=== PATIENT | female | born 1990 | race Caucasian/White ===

== ENCOUNTER 2020-06-07 18:15 | Outpatient (CLI) | payer MEDICAID, SELFPAY ==
[2020-06-07 18:30] VITALS: BMI 28.9
[2020-06-07 19:17] LABS: ROM Internal Control Test YES-OK TO RESULT pt. (Internal QC); ROM Patient Test Negative (Negative)
--- NOTE | 2020-06-09 14:04 | OB.TRI.NOTE ---
History of Present Illness Date of Service: 06/07/20 Was patient seen by the physician?: No Reason For Visit: R/O LABOR Final YAKOV: 08/23/20 Gestational age: 29 Weeks and 2 Days Allergies amoxicillin Allergy (Mild, Verified 04/14/19 16:01) Rash clindamycin Allergy (Mild, Verified 04/14/19 16:01) Rash polymyxin B Allergy (Mild, Verified 04/14/19 16:01) Rash Laboratory Studies: Laboratory Tests 06/07/20 Range/Units 18:38 Vag Amniotic Fld Detect Negative (Negative) NST - FHR Rate Baby A Baseline: 120 Variability:: Moderate Accelerations:: 15 x 15 Decelerations:: None NST Reactive:: Yes Uterine Activity:: quiet Impression/Plan Reactive NST for threatened PTL
== END 2020-06-07 19:20 | disposition home or self-care (01) ==
LOC: WPOUT 18:23 → OBT 18:24
PROVIDERS: Visit Provider Obstetrics & Gynecology
DX: O60.03 Preterm labor without delivery, third trimester (principal); Z3A.29 29 weeks gestation of pregnancy
CPT/HCPCS: 59025; 59050; 84112; 99218; G0378

== ENCOUNTER 2020-08-09 07:35 | Outpatient (CLI) | payer MEDICAID, SELFPAY ==
--- NOTE | 2020-08-09 07:58 | PCM.PN.BLA ---
Progress Note Pt felt a large movement with baby. TAUS- vertex presentation. Cvx 1/t/h.
[2020-08-09 08:11] VITALS: BP 132/71; PULSE 62; O2SAT 94
[2020-08-09 08:12] VITALS: BP 132/71; PULSE 61; TEMP 37.2; O2SAT 96
[2020-08-09 08:14] VITALS: BMI 30.1
[2020-08-09 12:15] VITALS: BP 112/71; PULSE 162; PULSE 85; PULSE 96; TEMP 36.7; O2SAT 83; O2SAT 99
--- NOTE | 2020-08-22 13:52 | OB.TRI.NOTE ---
- Problem List (1) Irregular contractions Status: Acute History of Present Illness Date of Service: 08/09/20 Was patient seen by the physician?: Yes Reason For Visit: R/O LABOR Date of Service: 08/09/20 History of Present Illness: Patient arrived to unit c/o contractions. Denies any loss of fluid or vaginal bleeding. Reports that baby was breech last week in office. Patient assessed by Dr. Garcia at bedside due to history of breech presentation. Brief bedside US completed and vertex position confirmed. Allergies amoxicillin Allergy (Mild, Verified 08/22/20 03:18) Rash clindamycin Allergy (Mild, Verified 08/22/20 03:18) Rash polymyxin B Allergy (Mild, Verified 08/22/20 03:18) Rash Physical Exam Vitals: Vital Signs Temp Pulse BP Pulse Ox 98.1 F 96 112/71 99 08/09/20 12:15 08/09/20 12:15 08/09/20 12:15 08/09/20 12:15 Neurological: Cranial nerves II-XII grossly intact Presentation: Cephalic Cervix Dilation (cm): 1 Station: -3 Effacement (%): 30 NST - FHR Rate Baby A Baseline: 130 Variability:: Moderate Accelerations:: 15 x 15 Decelerations:: None NST Reactive:: Yes FHR Category:: Category I Uterine Activity:: 3-5 minutes Impression/Plan R/O labor CE unchanged Category 1 tracing NST reactive Discharge home
== END 2020-08-09 10:25 | disposition home or self-care (01) ==
LOC: WPOUT 07:39 → WP 07:40
PROVIDERS: Referring Provider Advanced Practice Midwife; Visit Provider Advanced Practice Midwife
DX: O47.9 False labor, unspecified (principal); Z3A.00 Weeks of gestation of pregnancy not specified
CPT/HCPCS: 59025; 59050; 99218; G0378

== ENCOUNTER → 2020-08-12 10:14 | Outpatient (CLI) | payer MEDICAID, SELFPAY ==
[2020-08-09 08:14] VITALS: BMI 30.1
== END ==
PROVIDERS: Visit Provider Obstetrics & Gynecology
DX: Z11.59 Encounter for screening for other viral diseases (principal)
CPT/HCPCS: 87635; C9803; U0003

== ENCOUNTER 2020-08-22 03:40 | Inpatient (IN) | payer MEDICAID, SELFPAY ==
[2020-08-22] VITALS (33 sets, daily range): BP systolic 106–163; BP diastolic 54–79; PULSE 58–190; TEMP 36.3–37; O2SAT 83–100; BMI 30.1
[2020-08-22 04:13] LABS: Absolute Lymphocyte Count 2.28 X10^3/uL (0.83-4.51); Absolute Neutrophil Count 10.2 X10^3/uL (2.0-7.7); Basophil# 0.03 X10^3/uL; Basophil% 0.2 % (0-1); Eosinophil# 0.05 X10^3/uL; Eosinophils% 0.4 % (0-5); Hematocrit 40.2 % (37-47); Hemoglobin 13.8 g/dL (12.0-15.0); Lymphocyte # 2.28 X10^3/ul (4.0); Lymphocyte % 16.8 % (19-41); Mean Corp Hgb Conc 34.3 g/dL (32-36); Mean Corpuscular Hgb 30.9 pg (27.0-32.0); Mean Corpuscular Volume 89.9 fL (81-99); Mean Platelet Vol. 12.7 fl (6.2-12.0); Monocyte# 0.94 X10^3/uL; Monocyte% 6.9 % (0-10); NRBC Flagged by Analyzer 0 % (0-5); Neutrophil # 10.22 X10^3/uL (2.7-7.7); Neutrophil % 75.3 % (47-70); Platelet Count 187 K/mm3 (150-450); RBC Distribution Width CV 13.2 % (11.6-14.6); RBC Distribution Width SD 43.2 fl (35.1-43.9); Red Blood Count 4.47 M/mm3 (4.2-5.4); White Blood Count 13.6 K/mm3 (4.4-11.0)
--- NOTE | 2020-08-22 05:48 | HP.PCM_ITS ---
History Date of Admission: 08/22/20 Final YAKOV: 08/23/20 Gestational age: 39 Weeks and 6 Days History of this : This is a 30 year-old, 30-year-old 1 para 0 presents at 39-6/7 weeks gestation complaining of contractions. She denied gross vaginal bleeding or leaking of fluid. She had good movement. She was evaluated in triage and found mated. Contractions have gotten more intense since admission. 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 but denies ever having had an outbreak Allergies amoxicillin Allergy (Mild, Verified 08/22/20 03:18) Rash clindamycin Allergy (Mild, Verified 08/22/20 03:18) Rash polymyxin B Allergy (Mild, Verified 08/22/20 03:18) Rash Home Medications: Home Medications Pnv No.95/Ferrous Fum/Folic AC [ Formula Tablet] 1 tab PO DAILY 06/07/20 Smoking Status: Never smoker Alcohol: None Number of Fetus(es): 1 History Past Pregnancies: Past Pregnancies Delivery Date Name GA/ Weeks Outcome Route Wt Sex Labor Length Anesthesia Delivery Location Provider FOB Expected Delivery Method: Spontaneous Vaginal Review of Systems Constitutional: Denies: Chills, Fever Eyes: Denies: Blurred vision Cardiovascular: Denies: Chest Pain Respiratory: Denies: Cough, Shortness of Breath Gastrointestinal: Denies: Vomiting Genitourinary: Denies: Dysuria Skin: Denies: Rash Neurological: Denies: Blurred vision, Change in Speech Physical Exam Vitals: Vital Signs Temp Pulse BP Pulse Ox 97.9 F 59 L 142/67 H 97 08/22/20 05:38 08/22/20 05:38 08/22/20 05:38 08/22/20 05:38 General: Alert, Cooperative, No apparent distress Cardiovascular: Regular rate Lungs: Normal air movement Abdomen: Soft, Non Tender, Non-Distended, Gravid, Appropriate for Gestational Age Extremities:: Other - edema 1+ Neurological: Neuro grossly intact. Negative for: Slurred Speech, Unsteady Gait AUTO SERVICE MECHANIC: Normal external genitalia Estimated gestational size: Appropriate for gestational size Presentation: Cephalic Assessment/Plan This is a 30 year-old, avid 1 para 0 at 39-6/7 weeks with spontaneous labor. Mean weight is less than 4500 g clinically, pelvis clinically adequate to expect vaginal delivery. May use epidural, nitrous oxide, IV pain medications or alternative methods for pain control as needed. Patient has a instant potato processor for labor support.
--- NOTE | 2020-08-22 08:57 | PCM.PN.OB ---
Subjective: Patient seen at bedside. Ambulating in room. Prosthetics Assistant present for support. No pain medications. Objective: Category 1 tracing- Reactive NST TOCO- contractions every 2-4 minutes and palpate moderate and relaxed in between Continues to leak clear fluid CE- /-2 Brief bedside US completed to verify vertex - Physical Exam Vitals/I&O's: Vital Signs Temp Pulse BP Pulse Ox 98.6 F 67 121/69 H 97 08/22/20 06:55 08/22/20 07:24 08/22/20 07:24 08/22/20 06:55 Weight: 164 lb 12.8 oz Body Mass Index (BMI) 30.1 General: Alert, Oriented x3, Cooperative Oral: Moist Mucosa Lungs: Normal air movement Cardiovascular: Regular rate Abdomen: Soft, Non Tender Extremities: No edema Musculoskeletal: No Tenderness to Palpation of Joints or Extremities Neurological: Cranial nerves II-XII grossly intact Laboratory Results 08/22/20 04:00: WBC 13.6 H, RBC 4.47, Hgb 13.8, Hct 40.2, MCV 89.9, MCH 30.9, MCHC 34.3, RDW Std Deviation 43.2, RDW Coeff of Ruel 13.2, Plt Count 187, MPV 12.7 H, Immature Gran % (Auto) 0.400, Neut % (Auto) 75.3 H, Lymph % (Auto) 16.8 L, [place] % (Auto) 6.9, Eos % (Auto) 0.4, Baso % (Auto) 0.2, Absolute Neuts (auto) 10.2 H, Absolute Lymphs (auto) 2.28, Nucleated RBC % 0 08/22/20 04:00: Blood Type A POSITIVE, Antibody Screen NEGATIVE Current Medications Acetaminophen (Tylenol) 325 - 650 mg PO Q4H PRN PRN PRN Reason: Pain Score 1-3/10 Al Hydroxide/Mg Hydroxide (Mylanta Ii) 15 - 30 ml PO Q4H PRN PRN PRN Reason: INDIGESTION Citric Acid/Sodium Citrate (Bicitra) 30 ml PO X1 PRN PRN Reason: Section Fentanyl Citrate (Sublimaze (100mcg Ampule)) 25 - 50 mcg IV Q2H PRN PRN PRN Reason: Pain Score 4-10/10 Lactated Ringer's () 500 mls @ 999 mls/hr IV .Q31M PRN PRN Reason: Epidural Lactated Ringer's () 500 mls @ 999 mls/hr IV .Q31M PRN PRN Reason: Corrective Measures Lactated Ringer's () 1,000 mls @ 50 mls/hr IV .Q20H KENISHA Influenza Virus Vaccine Quadrival (Flucelvax /Fluzone ) 0.5 ml IM .ONCE ONE Stop: 08/22/20 10:01 Ondansetron HCl (Zofran) 4 mg IV Q4H PRN PRN PRN Reason: NAUSEA Prochlorperazine Edisylate (Compazine Iv) 10 mg IV Q6H PRN PRN PRN Reason: NAUSEA Sodium Chloride () 10 - 40 ml IV X1 PRN PRN Reason: SALINE FLUSH Medical Necessity - Tobacco Use Smoking Status: Never smoker Assessment/Plan at 39.6 weeks gestation in active labor Continue plan of care Position changes Pain medications if indicated Anticipate Dr. Argueta notified of status and is collaborating physician
[2020-08-22] MEDS: Lactated Ringers 1,000 ML 200 ML IV ×3 (10:52→20:33)
--- NOTE | 2020-08-22 12:59 | PCM.PN.OB ---
Subjective: Patient seen at bedside. Continues to labor with support of and Industrial Production Manager. Has completed numerous position changes, has been in the tub and ambulated hallways. Objective: Category 1 tracing TOCO- contractions every 2-4 minutes, coupling CE- unchanged from 814 exam- /-2 - Physical Exam Vitals/I&O's: Vital Signs Temp Pulse BP Pulse Ox 98.6 F 85 151/79 H 97 08/22/20 06:55 08/22/20 12:38 08/22/20 12:38 08/22/20 06:55 Weight: 164 lb 12.8 oz Body Mass Index (BMI) 30.1 General: Alert, Oriented x3, Cooperative Lungs: Normal air movement Cardiovascular: Regular rate Abdomen: Soft, Non Tender Skin: No rashes Neurological: Cranial nerves II-XII grossly intact Laboratory Results 08/22/20 04:00: WBC 13.6 H, RBC 4.47, Hgb 13.8, Hct 40.2, MCV 89.9, MCH 30.9, MCHC 34.3, RDW Std Deviation 43.2, RDW Coeff of Ruel 13.2, Plt Count 187, MPV 12.7 H, Immature Gran % (Auto) 0.400, Neut % (Auto) 75.3 H, Lymph % (Auto) 16.8 L, [place] % (Auto) 6.9, Eos % (Auto) 0.4, Baso % (Auto) 0.2, Absolute Neuts (auto) 10.2 H, Absolute Lymphs (auto) 2.28, Nucleated RBC % 0 08/22/20 04:00: Blood Type A POSITIVE, Antibody Screen NEGATIVE Current Medications Acetaminophen (Tylenol) 325 - 650 mg PO Q4H PRN PRN PRN Reason: Pain Score 1-3/10 Al Hydroxide/Mg Hydroxide (Mylanta Ii) 15 - 30 ml PO Q4H PRN PRN PRN Reason: INDIGESTION Citric Acid/Sodium Citrate (Bicitra) 30 ml PO X1 PRN PRN Reason: Section Fentanyl Citrate (Sublimaze (100mcg Ampule)) 25 - 50 mcg IV Q2H PRN PRN PRN Reason: Pain Score 4-10/10 Lactated Ringer's () 500 mls @ 999 mls/hr IV .Q31M PRN PRN Reason: Epidural Lactated Ringer's () 500 mls @ 999 mls/hr IV .Q31M PRN PRN Reason: Corrective Measures Lactated Ringer's () 1,000 mls @ 50 mls/hr IV .Q20H KENISHA Last Admin: 08/22/20 10:52 Dose: 200 mls/hr Documented by: Ondansetron HCl (Zofran) 4 mg IV Q4H PRN PRN PRN Reason: NAUSEA Prochlorperazine Edisylate (Compazine Iv) 10 mg IV Q6H PRN PRN PRN Reason: NAUSEA Sodium Chloride () 10 - 40 ml IV X1 PRN PRN Reason: SALINE FLUSH Medical Necessity - Tobacco Use Smoking Status: Never smoker Assessment/Plan at 39.6 weeks gestation in active labor Suggested to start Pitocin IV to assist with contraction pattern. - Patient declines Continue plan of care Position changes Water therapy Anticipate Dr. Argueta updated on patient status
[2020-08-22] MEDS: Oxytocin 30 units/NS 500 ml 30 UNITS/500 ML IV.SOLN IV (14:40)
[2020-08-22] MEDS: DiphenhydrAMINE 50 MG/ML Syringe 25 MG IV (16:10)
--- NOTE | 2020-08-22 16:45 | PN_ITS ---
Progress Note Patient continues to labor without pain medication. Breathing well through contractions. Declines pain medication or epidural. and Certified Medicine Aide remain at bedside for support. Category 2 tracing with variables but overall reassuring Pitocin at 6 mu/min CE- 7-8/90/-2- Change from earlier exam Bloody show present and head well applied during contraction A/P at 39.6 weeks gestation active labor Continue with present plan of care Dr. Argueta updated and agrees with plan of care Anticipate STROKE Vital Signs/Narrative: Vital Signs Temp Pulse BP 08/22/20 16:18 71 136/78 H 08/22/20 15:10 62 122/67 H 08/22/20 14:41 69 123/61 H 08/22/20 14:40 97.8 F 08/22/20 13:50 60 117/66
[2020-08-22] MEDS: Lactated Ringers 500 ML 999 ML IV ×2 (18:00→23:13)
[2020-08-22] MEDS: fentaNYL-bupivacaine (epidural) 100 ML BAG EPIDURAL ×2 (18:50→23:34)
[2020-08-23] VITALS (35 sets, daily range): BP systolic 101–131; BP diastolic 40–76; PULSE 59–117; RESP 14–16; TEMP 36.5–37.6; O2SAT 96–99
[2020-08-23] MEDS: Lactated Ringers 1,000 ML 200 ML IV ×2 (02:45→08:57)
[2020-08-23] MEDS: Lactated Ringers 500 ML 999 ML IV (04:18)
[2020-08-23] MEDS: fentaNYL-bupivacaine (epidural) 100 ML BAG EPIDURAL (04:52)
--- NOTE | 2020-08-23 06:35 | PCM.PN.BLA ---
Progress Note Patient seen at bedside several times throughout the night. Comfortable with epidural anesthesia. Starting to feel pressure in bottom Category 2 tracings with occasional late and variable decelerations- corrective measures improve FHTs CE- 9.5/90/0 SROM for 24 hours- Patient remains afebrile, no s/s of infection A/P at 40 weeks gestation active labor Continue present management Anticipate Dr. Argueta aware and agrees with plan of care STROKE Vital Signs/Narrative: Vital Signs Temp Pulse BP Pulse Ox 08/23/20 06:24 60 08/23/20 06:23 59 L 99 08/23/20 06:22 98.8 F 64 115/67 08/23/20 04:45 68 114/62 08/23/20 04:44 99.0 F 08/23/20 04:08 63 111/63 08/23/20 03:54 98.8 F 08/23/20 02:55 98.8 F 76 121/67 H
--- NOTE | 2020-08-23 08:30 | PCM.PN.BLA ---
Progress Note At bedside to assess patient. Patient has pushed with several contractions and prolonged late decelerations noted with each push. Category 2 tracing. Cervix 9 and half with a swollen anterior lip. Patient remote from delivery and no descent noted with pushing. Unable to place a vacuum or forceps safely for an assisted delivery. Recommended section given intolerance to labor and remote from delivery. Patient desires to proceed with . Discussed risk, benefits, alternatives and obtained consent. STROKE Vital Signs/Narrative: Vital Signs Temp Pulse BP Pulse Ox 08/23/20 07:25 99.7 F H 72 120/69 08/23/20 06:24 60 08/23/20 06:23 59 L 99 08/23/20 06:22 98.8 F 64 115/67 08/23/20 04:45 68 114/62 08/23/20 04:44 99.0 F
[2020-08-23] MEDS: Sodium Citrate/Citric Acid 30 ML UDC PO (09:50)
[2020-08-23] MEDS: Cefazolin 2 GM in 0.9% Normal Saline 100 ML IV (09:53)
--- NOTE | 2020-08-23 11:10 | OP.PCM_ITS ---
Problem List (1) 39 weeks gestation of Status: Acute (2) Primiparous Status: Acute (3) CPD (cephalo-pelvic disproportion) Status: Acute (4) Arrest of descent, delivered, current hospitalization Status: Acute (5) intolerance to labor, delivered, current hospitalization Status: Acute Report of Operation Date of Procedure: 08/23/20 Pre-Operative Diagnosis: 39 week gestation, primiparous patient, CPD, arrest of descent, intolerance to labor Post-Operative Diagnosis: As above Surgery/Procedure Performed:: PLTCS via pfannenstiel incision Description of Surgical Findings:: Baby in left occiput anterior position. Narrow pelvis. Uterus appeared slightly heart-shaped, and the cavity was felt to be normal. Normal-appearing bilateral tubes and ovaries. automatic brine mixer operator: Deanna Freeman Type of Anesthesia:: Epidural Special Medications: None Specimen's removed: Placenta Drains: Brizuela Estimated Blood Loss (mL): 600 Fluids Replaced: 1000 Description of Procedure: The patient was taken to the operating room where epidural anesthesia was found to be adequate. She was prepped and draped in the dorsal position with a leftward tilt. A Pfannenstiel skin incision was made with a scalpel and this was carried down to the underlying layer of fascia. The fascia was incised in the midline and extended out laterally using Phillip scissors. The fascia was dissected off the rectus muscles with combination of sharp and blunt dissection. The rectus muscles were in the midline. The peritoneum was entered sharply with good visualization of the bladder and the peritoneal incision was extended bluntly. A bladder blade was inserted. A low transverse incision was made on the uterus with good visualization of the bladder. Using a hand from below from a nurse, the 's head was gently brought to the hysterotomy. The infant was delivered without any force or delay. A viable male infant was delivered atraumatically and cord was clamped and cut immediately. was handed off to the nursery staff. The placenta was delivered with manual extraction and noted to be normal-appearing. Cord gases were sent. The uterus was exteriorized. The uterus was noted to be slightly heart-shaped. The cavity was cleared of all clot and debris and palpated to be normal. Bilateral cervical lacerations were noted laterally. The extensions into the cervix and hysterotomy were closed with Vicryl in a running locked fashion. Several additional [id number] sutures were placed for hemostasis. Arrista was placed over the hysterotomy. The uterus was placed back into the abdomen. Good hemostasis was again noted. The peritoneum was closed in a running fashion with Vicryl. The rectus muscles were noted to be hemostatic. The fascia was closed with Vicryl in a running fashion. Subcutaneous space was irrigated and made hemostatic with the Bovie cautery. Subcutaneous space was reapproximated in a running fashion Vicryl. The skin was closed in a subcuticular fashion with Monocryl. Steri-Strips and dressing were placed. Instrument, sponge, needle counts were correct. The patient was taken recovery in stable condition. Grafts/Implants Used: None - Complications None - Admit VTE Documentation VTE Present on Admission: No VTE Mechan Device Prophylaxis: SCD's VTE Pharm Prophylaxis ordered?: No Delivery Classification: BARBRA Gestational age: 39 weeks Indications for : Arrrest of Descent, Nonreassuring Status Placenta Disposition: Sent to Pathology Drain: Brizuela to straight drain Cord Entanglement: Around neck x 1, loose Nuchal Cord Compression: Without compression Cord Vessel Description: 3 Vessels Infant Gender: Male (1 minute): 4 (5 minute): 8 Delayed cord clamping: No Antibiotic Given: Ancef 2 grams IV x1, Zithromax 500 mg/5 mL X1 Pt instructed on risks of surgery: Bleeding, Anesthesia Risks, Infection, Need for Future C-Sections, Injury to surrounding structure(s) including bowel and bladder Complications: None
[2020-08-23] MEDS: Oxytocin 30 units/NS 500 ml 30 UNITS/500 ML IV.SOLN 167 UNITS IV (11:15)
--- NOTE | 2020-08-23 11:26 | PLAC_PTH ---
PATIENT: LOUIS VALDEZ LOC: [facility] U#:[id number] AGE/SX: 30/F ROOM: WP006 RE08/22/[address]: Dr. Deanna Freeman MD : 1990 BED: 1 DIS: 08/24/2020 SPEC #: [id number] RECD: 08/23/20 12:29 STATUS: LAZARO SONIA #: [id number] DANETTE: 08/23/20 11:[address]: Deanna Freeman DEPT: SURGICAL PATHOLOGY RECD BY: Reyna Taveras ENTERED: 08/26/20 10:52 SP TYPE: PLACENTA OTHR DR: Dr. Mirian Garcia, DO No Primary Care Phys Tissues: Placenta, NOS Procedures: Surgery Specimen Level V HEADER OPERATION: Primary section PRE-OP DIAGNOSIS: Prolonged rupture of membranes TISSUE SUBMITTED: Placenta MICROSCOPIC DIAGNOSIS Cheung placenta (475 gm): Umbilical cord - trivascular with no inflammation. Placental membranes - acute deciduitis and acute chorionitis. Placental disc - remote infarcts, intervillous congestion and Kenzie-Zachary change. AM:adriana 08/28/20 MICROSCOPIC DESCRIPTION Slides are reviewed. GROSS DESCRIPTION SPECIMEN: PLACENTA / CLINICAL INFORMATION: A. Weight: 3.225 kg B. Gestational Age: 40 weeks C. Sex: Male PLACENTAL WEIGHT (POST FIXATION): 475 gm PLACENTAL DIMENSIONS: 18 x 16 x 3 cm PLACENTAL SHAPE: Usual ovoid PLACENTAL WEIGHT FOR GESTATIONAL AGE: Within 10-99th percentile MEMBRANES - Present A. Insertion: Marginal B. Site of rupture from edge: At edge of placental disc C. Color of membrane: Granados-shepherd D. Abnormalities: None UMBILICAL CORD - Present A. Color: Granados-shepherd B. Insertion: Near central insertion C. Length: 40 cm D. Diameter: 1.5 cm E. Number of vessels: Three F. Abnormalities: None PLACENTAL DISC - Present A. Color of surface: Granados-shepherd B. surface abnormalities: None C. Maternal cotyledons: Intact with minimal tears D. Attached retro placental clot: No clot E. Cut surface: Dark red and spongy F. Lesions: Three red to granados lesions ranging in size from 2 to 2.5 cm G. Separate clot: Absent SECTIONS SUBMITTED: 1. Umbilical cord ( end notched) 2. Umbilical cord, placental end 3. Membrane roll, lesion 4. Placental disc, and maternal surfaces, lesion 5. Placental disc, and maternal surfaces, lesion 6. Placental disc, and maternal surfaces, lesion AM:adriana 08/27/29 TC:2 CPT: 47222
[2020-08-23 12:30] LABS: Pathology Specimen OB SEE PATHOLOGY REPORT
[2020-08-23] MEDS: Acetaminophen 500 MG Tablet 1000 MG PO ×3 (14:11→23:03)
[2020-08-23] MEDS: Ketorolac 30 MG/ML Syringe IV ×2 (17:16→23:03)
[2020-08-23] MEDS: 0.9% Saline Lock 10 ML Syringe IV (23:04)
[2020-08-24 00:24] VITALS: BP 113/53; PULSE 74; RESP 16; TEMP 36.7
[2020-08-24 03:21] VITALS: BP 115/61; PULSE 78; RESP 16; TEMP 36.9; O2SAT 96
[2020-08-24] MEDS: Acetaminophen 500 MG Tablet 1000 MG PO ×2 (05:07→14:59)
[2020-08-24] MEDS: 0.9% Saline Lock 10 ML Syringe IV (05:08)
[2020-08-24] MEDS: Naproxen 250 MG Tablet 500 MG PO ×2 (05:17→13:07)
[2020-08-24 05:21] LABS: Hematocrit 30.5 % (37-47); Hemoglobin 10.3 g/dL (12.0-15.0); Mean Corp Hgb Conc 33.8 g/dL (32-36); Mean Corpuscular Hgb 30.6 pg (27.0-32.0); Mean Corpuscular Volume 90.5 fL (81-99); Mean Platelet Vol. 13.4 fl (6.2-12.0); Platelet Count 122 K/mm3 (150-450); RBC Distribution Width CV 13.8 % (11.6-14.6); RBC Distribution Width SD 46.2 fl (35.1-43.9); Red Blood Count 3.37 M/mm3 (4.2-5.4); White Blood Count 12.7 K/mm3 (4.4-11.0)
--- NOTE | 2020-08-24 05:44 | PCM.PN.OB ---
Patient Problems: Active and Suspected Problems 39 weeks gestation of (Acute) Primiparous (Acute) CPD (cephalo-pelvic disproportion) (Acute) Arrest of descent, delivered, current hospitalization (Acute) intolerance to labor, delivered, current hospitalization (Acute) Subjective: Patient doing well this morning. Pain is well controlled. Ambulating without difficulty. Tolerating regular diet without nausea or vomiting. Denies chest pain, shortness of breath, lightheadedness, dizziness, leg pain. She desires to go home today. - Physical Exam Vitals/I&O's: Vital Signs Temp Pulse Resp BP Pulse Ox 98.4 F 78 16 115/61 96 08/24/20 03:21 08/24/20 03:21 08/24/20 03:21 08/24/20 03:21 08/24/20 03:21 Oxygen Delivery Method Room Air Weight: 164 lb 12.8 oz Body Mass Index (BMI) 30.1 Intake and Output for Last 24 Hours 08/22/20 08/23/20 08/24/20 23:59 23:59 23:59 Intake Total 3613.08 / 3613.08 5313.82 / 5313.82 Output Total 400 / 400 2350 / 2350 800 / 800 Balance 3213.08 / 3213.08 2963.82 / 2963.82 -800 / -800 General: Alert, No apparent distress HEENT: Atraumatic Abdomen: Soft, - - softly distended, ATTP, no rebounding, no gaurding, no rigidity Extremities: No edema, No Calf Tenderness Neurological: Neuro grossly intact Psych/Mental Status: Normal Affect, Appropriate Laboratory Results 08/24/20 05:05: WBC 12.7 H, RBC 3.37 L, Hgb 10.3 L, Hct 30.5 L, MCV 90.5, MCH 30.6, MCHC 33.8, RDW Std Deviation 46.2 H, RDW Coeff of Ruel 13.8, Plt Count 122 L, MPV 13.4 H Current Medications Acetaminophen (Tylenol) 1,000 mg PO Q6 KENISHA Last Admin: 08/24/20 05:07 Dose: 1,000 mg Documented by: Bisacodyl (Dulcolax) 10 mg RECTAL UD PRN PRN Reason: If no BM Diphenhydramine HCl (Benadryl) 25 mg PO Q6H PRN PRN PRN Reason: ITCHING Stop: 08/24/20 11:20 Hydrocortisone (Hytone) 1 applic TOPICAL TID PRN PRN; Protocol PRN Reason: Discomfort Naloxone HCl 4 mg/ Dextrose 504 mls @ 0 mls/hr IV .Q0M PRN; Protocol PRN Reason: To maintain Resp. rate >10 Methylergonovine Maleate (Methergine) 0.2 mg IM X1 PRN PRN Reason: Uterine Atony Nalbuphine HCl (Nubain) 5 mg IV Q3H PRN PRN PRN Reason: ITCHING Stop: 08/24/20 11:20 Naloxone HCl (Narcan) 0.02 mg IV Q1M PRN PRN Reason: RR< 10 AND PT UNRESPONSIVE Naproxen (Naprosyn) 500 mg PO Q8H KENISHA Ondansetron HCl (Zofran) 4 mg IV Q4H PRN PRN PRN Reason: Nausea Oxycodone HCl (Oxyir) 5 - 10 mg PO Q4H PRN PRN PRN Reason: Pain Score 4-10/10 Prochlorperazine Edisylate (Compazine Iv) 10 mg IV Q6H PRN PRN PRN Reason: NAUSEA Senna/Docusate Sodium (Senokot-S, Snow-Colace) 0 tablet PO DAILY ON LICENSE OF [facility] Last Admin: 08/23/20 14:13 Dose: Not Given Documented by: Simethicone (Mylicon) 80 mg PO PCHS PRN PRN Reason: Indigestion/stomach pain Sodium Chloride () 5 - 15 ml IV UD PRN PRN Reason: SALINE FLUSH Last Admin: 08/24/20 05:08 Dose: 10 ml Documented by: Medical Necessity - Tobacco Use Smoking Status: Never smoker Assessment/Plan All Active Problems Irregular contractions (Acute) 39 weeks gestation of (Acute) Primiparous (Acute) CPD (cephalo-pelvic disproportion) (Acute) Arrest of descent, delivered, current hospitalization (Acute) intolerance to labor, delivered, current hospitalization (Acute) Is postoperative day 1 from a primary . She is doing well. Pain is controlled. Working on breast-feeding. Hemodynamically stable. CBC reviewed. She desires to go home today. Will repeat CBC prior to discharge. Okay for discharge with follow-up in the office this upcoming week.
--- NOTE | 2020-08-24 05:50 | DCINST_ITS ---
Discharge Diet: No Restrictions Discharge Activity: May Not Drive, May Shower May shower in (days): 0 May resume sexual activity in: 6 weeks Weight Bearing Status: Weight bearing as tolerated Lifting Restrictions: Nothing heavier than baby Call your doctor if your incision/area has: Sudden Increased Bleeding, Increased Pain/ Swelling, Increased Redness, Foul Smelling Discharge, Swelling at the incision site Call your doctor if you observe: Fever of 101 or Higher, Inability to urinate, Inability to have a bowel movement, Using more than one pad per hour, Shortness of breath, Dizziness, Fainting spells, Swelling in the ankles, Chest pain, Increased palpitations (irregular heartbeat), Calf discomfort, Uncontrolled pain Suture Line Care: Avoid Pulling/Pushing, Avoid Pinching/Bending Remove Dressing in (days):: 6 - dressing to stay on for total of 1 week, then ok to remove in shower Cleanse incision/area with: Soap & Water Additional Instructions: If you experience any of the following, contact your healthcare provider. * Bleeding that soaks a pad every hour for 2 hours * Fever 100.4 or higher * Unrelieved incision or abdominal pain * Swelling, redness, discharge or bleeding from your incision or episiotomy site * Your incision begins to separate * Problems urinating (including inability to urinate or burning while urinating). * Visual changes * Severe headache * Flu-like symptoms * Pain or redness in one of both of your breasts * Pain, warmth, tenderness or swelling in your legs, especially the calf area * Frequent nausea and vomiting * Symptoms of depression or anxiety If you experience any of the following, call 911 or go to the nearest Emergency Room. * Chest pain * Problems breathing * Seizure activity * Partial or complete paralysis of a body part, slurred speech, weakness or drooping of the face, or a sudden inability to walk or hold your balance Allergies/Adverse Reactions: Allergies amoxicillin Allergy (Mild, Verified 08/22/20 03:18) Rash clindamycin Allergy (Mild, Verified 08/22/20 03:18) Rash polymyxin B Allergy (Mild, Verified 08/22/20 03:18) Rash Medications to take at Discharge Pnv No.95/Ferrous Fum/Folic AC [ Formula Tablet] 1 tab PO DAILY 06/07/20 Docusate Sodium [Colace] 100 mg PO BID PRN PRN #60 cap 08/24/20 Ibuprofen [Motrin] 600 mg PO Q6H PRN PRN #30 tab 08/24/20 Oxycodone HCl/Acetaminophen [Percocet 5/325] 1 tablet PO Q6H PRN PRN 7 Days #15 tablet 08/24/20 The following prescriptions were given: Docusate Sodium [Colace] 100 mg PO BID PRN PRN #60 cap PRN Reason: Constipation Transmission Status: Pending to [address] Ibuprofen [Motrin] 600 mg PO Q6H PRN PRN #30 tab PRN Reason: Pain Score 4-10/10 Transmission Status: Pending to [address] Oxycodone HCl/Acetaminophen [Percocet 5/325] 1 tablet PO Q6H PRN PRN 7 Days #15 tablet PRN Reason: Pain Score 6-10/10 Transmission Status: Received by [address] Follow-Up: Call to make an appointment with your doctor for an incision check in 1-2 weeks. You will also need a 6 week post- follow up appointment. Test results from this visit will be discussed in further detail at your follow- up appointment, if applicable. Please Follow Up With: Mirian Garcia DO When: 1 week for incision check Primary Care Physician: Care Physician,No Primary [Primary Care Provider] -
--- NOTE | 2020-08-24 05:51 | PCM.DC.SUM ---
Discharge Date and Diagnosis - Problem List Patient Problems: Active and Suspected Problems 39 weeks gestation of (Acute) Primiparous (Acute) CPD (cephalo-pelvic disproportion) (Acute) Arrest of descent, delivered, current hospitalization (Acute) intolerance to labor, delivered, current hospitalization (Acute) Date of Admission: 08/22/20 Date of Discharge: 08/24/20 - Primary Discharge Diagnosis Acute Problems: Active Problems 39 weeks gestation of (Acute) Primiparous (Acute) CPD (cephalo-pelvic disproportion) (Acute) Arrest of descent, delivered, current hospitalization (Acute) intolerance to labor, delivered, current hospitalization (Acute) Hospital Course and Treatment Consultations 08/22/20 03:57 Consult: Anesthesia Routine Comment: Reason For Exam: Labor Operations: - - Primary section Summary of Care Provided: The patient is a 30 year old F [] who presented in labor at 39 weeks gestation. She declined augmentation of labor initially, and then was agreeable Pitocin. She made slow change to complete. With pushing she was having prolonged late decelerations. Her pelvis was felt to be an adequate, and there was no descent with pushing. Given intolerance to labor and her being remote from delivery a primary section was recommended. See operative report for details. On postoperative day 1 the patient was doing well. She was ambulating, voiding, tolerating regular diet, and pain was controlled. She desired to go home on postoperative day 1. She was discharged home in good condition to follow-up in 1 week. Patient Problems: Active and Suspected Problems 39 weeks gestation of (Acute) Primiparous (Acute) CPD (cephalo-pelvic disproportion) (Acute) Arrest of descent, delivered, current hospitalization (Acute) intolerance to labor, delivered, current hospitalization (Acute) - Physical Exam Vitals/I&O's: Vital Signs Temp Pulse Resp BP Pulse Ox 98.4 F 78 16 115/61 96 08/24/20 03:21 08/24/20 03:21 08/24/20 03:21 08/24/20 03:21 08/24/20 03:21 Oxygen Delivery Method Room Air Weight: 164 lb 12.8 oz Body Mass Index (BMI) 30.1 Intake and Output for Last 24 Hours 08/22/20 08/23/20 08/24/20 23:59 23:59 23:59 Intake Total 3613.08 / 3613.08 5313.82 / 5313.82 Output Total 400 / 400 2350 / 2350 800 / 800 Balance 3213.08 / 3213.08 2963.82 / 2963.82 -800 / -800 Laboratory Results 08/24/20 05:05: WBC 12.7 H, RBC 3.37 L, Hgb 10.3 L, Hct 30.5 L, MCV 90.5, MCH 30.6, MCHC 33.8, RDW Std Deviation 46.2 H, RDW Coeff of Ruel 13.8, Plt Count 122 L, MPV 13.4 H Current Medications Acetaminophen (Tylenol) 1,000 mg PO Q6 [facility] Last Admin: 08/24/20 05:07 Dose: 1,000 mg Documented by: Bisacodyl (Dulcolax) 10 mg RECTAL UD PRN PRN Reason: If no BM Diphenhydramine HCl (Benadryl) 25 mg PO Q6H PRN PRN PRN Reason: ITCHING Stop: 08/24/20 11:20 Hydrocortisone (Hytone) 1 applic TOPICAL TID PRN PRN; Protocol PRN Reason: Discomfort Naloxone HCl 4 mg/ Dextrose 504 mls @ 0 mls/hr IV .Q0M PRN; Protocol PRN Reason: To maintain Resp. rate >10 Methylergonovine Maleate (Methergine) 0.2 mg IM X1 PRN PRN Reason: Uterine Atony Nalbuphine HCl (Nubain) 5 mg IV Q3H PRN PRN PRN Reason: ITCHING Stop: 08/24/20 11:20 Naloxone HCl (Narcan) 0.02 mg IV Q1M PRN PRN Reason: RR< 10 AND PT UNRESPONSIVE Naproxen (Naprosyn) 500 mg PO Q8H [facility] Ondansetron HCl (Zofran) 4 mg IV Q4H PRN PRN PRN Reason: Nausea Oxycodone HCl (Oxyir) 5 - 10 mg PO Q4H PRN PRN PRN Reason: Pain Score 4-10/10 Prochlorperazine Edisylate (Compazine Iv) 10 mg IV Q6H PRN PRN PRN Reason: NAUSEA Senna/Docusate Sodium (Senokot-S, Snow-Colace) 0 tablet PO DAILY [facility] Last Admin: 08/23/20 14:13 Dose: Not Given Documented by: Simethicone (Mylicon) 80 mg PO PCHS PRN PRN Reason: Indigestion/stomach pain Sodium Chloride () 5 - 15 ml IV UD PRN PRN Reason: SALINE FLUSH Last Admin: 08/24/20 05:08 Dose: 10 ml Documented by: Discharge Diet: No Restrictions Discharge Activity: May Not Drive, May Shower May shower in (days): 0 May resume sexual activity in: 6 weeks Weight Bearing Status: Weight bearing as tolerated Call your doctor if your incision/area has: Sudden Increased Bleeding, Increased Pain/ Swelling, Increased Redness, Foul Smelling Discharge, Swelling at the incision site Call your doctor if you observe: Fever of 101 or Higher, Inability to urinate, Inability to have a bowel movement, Using more than one pad per hour, Shortness of breath, Dizziness, Fainting spells, Swelling in the ankles, Chest pain, Increased palpitations (irregular heartbeat), Calf discomfort, Uncontrolled pain Suture Line Care: Avoid Pulling/Pushing, Avoid Pinching/Bending Remove Dressing in (days):: 6 - dressing to stay on for total of 1 week, then ok to remove in shower Cleanse incision/area with: Soap & Water Home Medications: Medications to take at Discharge Pnv No.95/Ferrous Fum/Folic AC [ Formula Tablet] 1 tab PO DAILY 06/07/20 Docusate Sodium [Colace] 100 mg PO BID PRN PRN #60 cap 08/24/20 Ibuprofen [Motrin] 600 mg PO Q6H PRN PRN #30 tab 08/24/20 Oxycodone HCl/Acetaminophen [Percocet 5/325] 1 tab PO Q6H PRN PRN 7 Days #15 tab 08/24/20 Following Prescriptions Were Given to Patient: Docusate Sodium [Colace] 100 mg PO BID PRN PRN #60 cap PRN Reason: Constipation Transmission Status: Received by [facility]. Ibuprofen [Motrin] 600 mg PO Q6H PRN PRN #30 tab PRN Reason: Pain Score 4-10/10 Transmission Status: Received by [employer] [facility]. Oxycodone HCl/Acetaminophen [Percocet 5/325] 1 tab PO Q6H PRN PRN 7 Days #15 tab PRN Reason: Pain Score 6-10 Transmission Status: Received by [id number] [place] [address] Primary Care Physician: Care Physician,No Primary [Primary Care Provider] - Please Follow Up With: Mirian Garcia, When: 1 week for incision check Medical Necessity - Tobacco Use Smoking Status: Never smoker Meaningful Use Info Meaningful Use Diagnoses (Choose all that apply): None applicable
[2020-08-24 08:08] VITALS: BP 109/56; PULSE 71; RESP 16; TEMP 36.4
[2020-08-24 11:34] LABS: Hematocrit 31.6 % (37-47); Hemoglobin 10.6 g/dL (12.0-15.0); Mean Corp Hgb Conc 33.5 g/dL (32-36); Mean Corpuscular Hgb 30.3 pg (27.0-32.0); Mean Corpuscular Volume 90.3 fL (81-99); Mean Platelet Vol. 12.4 fl (6.2-12.0); Platelet Count 139 K/mm3 (150-450); RBC Distribution Width CV 14.1 % (11.6-14.6); RBC Distribution Width SD 46.5 fl (35.1-43.9); White Blood Count 13.7 K/mm3 (4.4-11.0)
[2020-08-24] MEDS: Senna/Docusate Sodium 1 Tablet PO (11:34)
--- NOTE | 2020-08-24 11:40 | CASEMGMT ---
Social Work Assessment Labor and Delivery Unit Date of Intervention: 08/24/2020 Time of Intervention: 11:40a Reason for Referral: History of anxiety History obtained from: Mother of baby (MOB) and medical records Household composition: MOB, father of baby (FOB)-Driss Salgado and baby boyDusty. Patient's parent/guardian status: MOB and FOB have been together for 5 years. First child for both MOB and FOB. Medical History: MOB is status post on 08/23/2020. Educational Status: Master's Degree Financial Status: Report no issues Infant Supplies: MOB reports has all needs met for baby including diapers, wipes, crib, car seat, clothes. Childcare/Caregiver(s): MOB reports she will be main caregiver as she is off work. Transportation: MOB reports no issues with transportation. Programs/Agencies Involved: [facility], [facility] [employer] [facility] Services/Legal Issues: No previous history Behavioral Health Issues: Mental Health History: MOB reports history of anxiety and was treated with medication and counseling in the past. MOB denies need for mental health services at this time. MOB reports good support from FOB and family. MOB reports healthy coping skills. Substance Use History: MOB denies any history of substance abuse for self and FOB. Family/Social Stressors: MOB reports anxiety about . MOB states has a appointment scheduled for Wednesday. Support Systems: MOB reports good support from family and FOB's family. MOB states her family will be home with MOB and FOB for the first week after discharge. Depression and Anxiety/Shaken Baby/Safe Sleeping: Education information provided and reviewed. ASSESSMENT: Met with MOB and FOB-Driss Salgado in room. FOB holding Dusty young upon entering the room. MOB up in rocking chair. Introduced role and reason for referral. MOB and FOB open to speaking with this worker. MOB discussed mental health history. MOB report has history of anxiety and used to be treated with medication and counseling. MOB reports has been able to deal with anxiety by talking to family and FOB. MOB reports he is able to calm me down. MOB discussed anxiety about and states already has appointment set up with nurse for Wednesday. MOB and FOB report good support from family. MOB to have support from family for first week after home going. Education provided on PPD and informational packet provided. MOB and FOB deny any issues or concerns. Nursing updated on this workers assessment. PLAN: Home with resources provided. No other services requested or indicated.
[2020-08-24 13:10] VITALS: BP 114/67; PULSE 62; RESP 16; TEMP 36.6
== END 2020-08-24 18:00 | disposition home or self-care (01) | DRG 540 ==
LOC: WPOUT 03:42 → WP 03:42
PROVIDERS: Admitting Provider Obstetrics & Gynecology; Visit Provider Obstetrics & Gynecology
DX: O62.1 Secondary uterine inertia (principal); O76 Abnormality in fetal heart rate and rhythm complicating labor and delivery; O65.1 Obstructed labor due to generally contracted pelvis; Z3A.39 39 weeks gestation of pregnancy; Z37.0 Single live birth; O98.32 Other infections with a predominantly sexual mode of transmission complicating childbirth; A60.00 Herpesviral infection of urogenital system, unspecified; O69.81X0 Labor and delivery complicated by cord around neck, without compression, not applicable or unspecified
CPT/HCPCS: 59025; 59050; 85025; 85027; 86850; 86900; 86901; 88307; 99218; J7120; 90686; A4216; G0378; J2405

== ENCOUNTER → 2020-11-09 15:03 | Outpatient (CLI) | payer BC, MEDICAID, SELFPAY ==
[2020-08-22 03:17] VITALS: BMI 30.1
== END ==
PROVIDERS: Referring Provider Obstetrics & Gynecology; Visit Provider Obstetrics & Gynecology
DX: P92.5 Neonatal difficulty in feeding at breast (principal)
CPT/HCPCS: 96158; 96159